=== PATIENT | female | born 1975 | race Caucasian/White ===

== ENCOUNTER 2017-03-13 12:56 | Emergency (ER) | payer OTHER ==
[2017-03-13] MEDS ORDERED: NORMAL SALINE 1000 ML 1,000 ML IV PRN (13:09)
--- NOTE | 2017-03-13 13:11 | ER Document Report ---
ED Medical Screen (RME) - General Chief Complaint: Allergic Reaction Stated Complaint: POSSIBLE ALLERGIC REACTION Time Seen by Provider: 03/13/17 13:05 Mode of Arrival: Ambulatory Information source: Patient, Relative TRAVEL OUTSIDE OF THE U[place] IN LAST 30 DAYS: No - HPI Patient complains to provider of: Nausea, vomiting, hallucinating Notes: 03/13/17 13:10 Patient is a 42-year-old female presenting to the emergency room today complaining of nausea and vomiting that occurred a few days ago, although she continues to have nausea today, a cough productive of whitish colored phlegm, and hallucinating, having episodes of seeing people that are that she knows, patient is concerned that this may be a reaction to medication, she was unable to take her medication for a few days due to excessive vomiting, and restarted all of them recently, 1 of them being Ambien CR which she has not taken the CR formulation in the past - Related Data Allergies/Adverse Reactions: gabapentin [Gabapentin] Allergy (Verified 07/19/15 11:36) Sulfa (Sulfonamide Antibiotics) Allergy (Verified 07/19/15 11:36) rash codeine [Codeine] Adverse Reaction (Verified 07/19/15 11:36) Past Medical History - Past Medical History Cardiac Medical History: Denies: Hx Coronary Artery Disease, Hx Heart Attack, Hx Hypertension Pulmonary Medical History: Denies: Hx Asthma, Hx Bronchitis, Hx COPD, Hx Pneumonia Neurological Medical History: Reports: Hx Seizures - allergic reaction to Gabapentin. Denies: Hx Cerebrovascular Accident Endocrine Medical History: Reports: Hx Hypothyroidism Renal/ Medical History: Reports: Hx Kidney Stones. Denies: Hx Peritoneal Dialysis Musculoskeltal Medical History: Denies Hx Arthritis Past Surgical History: Reports: Hx Appendectomy, Hx Gynecologic Surgery - endometrial ablation in '03 - Immunizations Hx Diphtheria, Pertussis, Tetanus Vaccination: Yes Physical Exam - Vital signs Vitals: Temp Pulse Resp BP Pulse Ox 99.6 F 117 H 20 124/74 98 03/13/17 13:01 03/13/17 13:03/13/17 13:03/13/17 13:01 03/13/17 13:01 Course - Vital Signs Vital signs: Temp Pulse Resp BP Pulse Ox 99.6 F 117 H 20 124/74 98 03/13/17 13:01 03/13/17 13:01 03/13/17 13:01 03/13/17 13:01 03/13/17 13:01
[2017-03-13 13:47] LABS: ABSOLUTE EOSINOPHILS # (AUTO) 0.1 10^3/uL (0.0-0.6); ABSOLUTE LYMPHOCYTES (AUTO) 0.9 10^3/uL (0.5-4.7); ABSOLUTE MONOCYTES (AUTO) 0.6 10^3/uL (0.1-1.4); ABSOLUTE NEUT (AUTO) 11.2 10^3/uL (1.7-8.2); BASOPHILS % (AUTO) 0.3 % (0-2); EOSINOPHILS % (AUTO) 0.4 % (0-6); HEMATOCRIT 35.5 % (36.0-47.0); HEMOGLOBIN 12.4 g/dL (12.0-15.5); HGB HCT DIFFERENCE 1.7; MEAN CORPUSCULAR HEMOGLOBIN 34.7 pg (27.0-33.4); MEAN CORPUSCULAR VOLUME 99 fl (80-97); MONOCYTES % (AUTO) 4.6 % (3-13); RED BLOOD COUNT 3.58 10^6/uL (3.72-5.28); RED CELL DISTRIBUTION WIDTH 14.2 % (11.5-14.0); SEGMENTED NEUTROPHILS % (AUTO) 87.7 % (42-78); WHITE BLOOD COUNT 12.8 10^3/uL (4.0-10.5)
[2017-03-13 13:53] LABS: APPEARANCE,URINE CLEAR; BILIRUBIN,URINE NEGATIVE (NEGATIVE); GLUCOSE, URINE NEGATIVE (NEGATIVE); KETONES,URINE NEGATIVE (NEGATIVE); LEUKOCYTE ESTERASE,URINE NEGATIVE (NEGATIVE); NITRITE,URINE NEGATIVE (NEGATIVE); PROTEIN,URINE NEGATIVE (NEGATIVE); URINE SPECIFIC GRAVITY 1.005; UROBILINOGEN,URINE NEGATIVE mg/dL (<2.0)
[2017-03-13 14:02] LABS: ALANINE AMINOTRANSFERASE 446 U/L (9-52); ALBUMIN 4.1 g/dL (3.5-5.0); ALCOHOL < 10 mg/dL (NONE DETECTED); ALKALINE PHOSPHATASE 183 U/L (38-126); ANION GAP 12 (5-19); ASPARTATE AMINO TRANSFERASE 89 U/L (14-36); BILIRUBIN,DIRECT 0.6 mg/dL (0.0-0.4); BILIRUBIN,TOTAL 0.8 mg/dL (0.2-1.3); BLOOD UREA NITROGEN 3 mg/dL (7-20); CALCIUM 9.5 mg/dL (8.4-10.2); CARBON DIOXIDE 22 mmol/L (22-30); CHLORIDE 106 mmol/L (98-107); CREATININE RESULT 0.55 mg/dL (0.52-1.25); GLUCOSE 127 mg/dL (75-110); SODIUM 139.8 mmol/L (137-145); TOTAL PROTEIN 6.8 g/dL (6.3-8.2)
[2017-03-13 14:07] LABS: URINE BARBITURATES SCREEN NEGATIVE; URINE METHADONE SCREEN NEGATIVE; URINE OPIATES LOW NEGATIVE; URINE PHENCYCLIDINE SCREEN NEGATIVE
[2017-03-13 14:07] LABS: POTASSIUM 3.1 mmol/L (3.6-5.0)
--- NOTE | 2017-03-13 14:24 | ER Document Report ---
ED General - General Chief Complaint: Allergic Reaction Stated Complaint: POSSIBLE ALLERGIC REACTION Time Seen by Provider: 03/13/17 13:05 Mode of Arrival: Ambulatory Information source: Patient Notes: Patient presents to the emergency department with complaints of hallucinations. Denies suicidal or homicidal ideations. Patient reports that on Wednesday of this past week she had a stomach bug, with vomiting diarrhea. Patient reports no vomiting diarrhea since and she has been eating and drinking as normal. Patient and her boyfriend reported that since she has been hallucinating, restless in her sleep, shaky and dizzy. She also reports having ringing in her ears. Patient reports when she was sick Wednesday through Wednesday she did not take any of her usual meds. She returned to them on to include Paxil Xanax and Ambien CR. Her boyfriend reports that she started screaming at him this morning and was hallucinating. Reports she was seeing her grandmother. Denies auditory hallucinations. Reports she is under the care of Dr. Suero [facility]. Patient also has a history of Graves' disease depression anxiety. She reports her last thyroid studies were normal. Patient is shaky and tearful. TRAVEL OUTSIDE OF THE [place] IN LAST 30 DAYS: No - HPI Onset: Other - since Onset/Duration: Persistent Quality of pain: No pain Associated symptoms: None Exacerbated by: Denies Relieved by: Denies Similar symptoms previously: No Recently seen / treated by doctor: No - Related Data Allergies/Adverse Reactions: gabapentin [Gabapentin] Allergy (Verified 07/19/15 11:36) Sulfa (Sulfonamide Antibiotics) Allergy (Verified 07/19/15 11:36) rash codeine [Codeine] Adverse Reaction (Verified 07/19/15 11:36) Past Medical History - General Information source: Patient, Relative Last Menstrual Period: 02/15/17 - Social History Smoking Status: Current Every Day Smoker Cigarette use (# per day): Yes Chew tobacco use (# tins/day): No Frequency of alcohol use: None Drug Abuse: None Lives with: Friend - boyfriend Family History: Reviewed & Not Pertinent Patient has suicidal ideation: No Patient has homicidal ideation: No - Past Medical History Cardiac Medical History: Denies: Hx Coronary Artery Disease, Hx Heart Attack, Hx Hypertension Pulmonary Medical History: Denies: Hx Asthma, Hx Bronchitis, Hx COPD, Hx Pneumonia Neurological Medical History: Reports: Hx Seizures - allergic reaction to Gabapentin. Denies: Hx Cerebrovascular Accident Endocrine Medical History: Reports: Hx Graves' Disease, Hx Hypothyroidism Renal/ Medical History: Reports: Hx Kidney Stones. Denies: Hx Peritoneal Dialysis Musculoskeltal Medical History: Denies Hx Arthritis Psychiatric Medical History: Reports: Hx Anxiety, Hx Depression Past Surgical History: Reports: Hx Appendectomy, Hx Cholecystectomy, Hx Gynecologic Surgery - endometrial ablation in '03 - Immunizations Hx Diphtheria, Pertussis, Tetanus Vaccination: Yes Review of Systems - Review of Systems Notes: Review HPI for review of systems., All other systems negative Physical Exam - Vital signs Vitals: Temp Pulse Resp BP Pulse Ox 99.6 F 117 H 20 124/74 98 03/13/17 13:01 03/13/17 13:01 03/13/17 13:01 03/13/17 13:01 03/13/17 13:01 - Notes Notes: PHYSICAL EXAMINATION: GENERAL: nontoxic looking HEAD: Atraumatic, normocephalic. EYES: Pupils equal round and reactive to light, extraocular movements intact, sclera anicteric, conjunctiva are normal. ENT: nares patent, oropharynx clear without exudates. Moist mucous membranes. NECK: Normal range of motion, supple without lymphadenopathy LUNGS: CTAB and equal. No wheezes rales or rhonchi. HEART: Regular rate and rhythm without murmurs ABDOMEN: Soft, no tenderness. No guarding, no rebound EXTREMITIES: Normal range of motion, no pitting edema. No cyanosis. NEUROLOGICAL: Cranial nerves grossly intact. Normal sensory/motor exams. PSYCH: Normal mood, normal affect. SKIN: Warm, Dry, normal turgor, no rashes or lesions noted Course - Re-evaluation Re-evalutation: 03/13/17 16:22 Amrit from mental health and to see patient. She reports patient is safe to go home. Patient is no longer experiencing hallucinations. We believe the hallucinations stem from her medications after being sick and restarting them at the same time. Patient's boyfriend is at her side and reports he is staying home for the next couple days and she is safe at home. - Vital Signs Vital signs: Temp Pulse Resp BP Pulse Ox 99.6 F 117 H 20 124/74 98 03/13/17 13:01 03/13/17 13:01 03/13/17 13:01 03/13/17 13:01 03/13/17 13:01 - Laboratory Result Diagrams: 03/13/17 13:32 03/13/17 13:32 Laboratory results interpreted by me: 03/13/17 03/13/17 03/13/17 13:21 13:32 13:32 WBC 12.8 H RBC 3.58 L Hct 35.5 L MCV 99 H MCH 34.7 H RDW 14.2 H Seg Neutrophils % 87.7 H Lymphocytes % 7.0 L Absolute Neutrophils 11.2 H Potassium 3.1 L BUN 3 L Glucose 127 H Direct Bilirubin 0.6 H AST 89 H ALT 446 H Alkaline Phosphatase 183 H Urine Blood SMALL H Salicylates < 1.0 L Acetaminophen < 10 L Discharge - Discharge Clinical Impression: Hallucinations Condition: Stable Disposition: HOME, SELF-CARE Instructions: Hallucinations ([facility]) Additional Instructions: *You have been evaluated for hallucinations *Rest *Follow up with your primary care provider within 3 days for recheck *Take your medication as prescribed *Return to ED for worsening condition, changes, needs Monitor your blood pressure. Your blood pressure was elevated today. This may be because you were anxious, in pain or because you need medication. It is important to follow up with your primary care provider for full evaluation. Forms: Elevated Blood Pressure
[2017-03-13 15:23] LABS: THYROID STIMULATING HORMONE 0.56 uIU/mL (0.47-4.68)
--- NOTE | 2017-03-13 16:31 | EKG REPORT ---
SEVERITY:- ABNORMAL ECG - SINUS RHYTHM INCOMPLETE RIGHT BUNDLE BRANCH BLOCK NONSPECIFIC T CHANGES : Confirmed by: Ramona Matos 13-Mar-2017 16:29:29
--- NOTE | 2017-03-13 16:31 | EKG REPORT ---
SEVERITY:- ABNORMAL ECG - SINUS TACHYCARDIA INCOMPLETE RIGHT BUNDLE BRANCH BLOCK NONSPECIFIC T CHANGES : Confirmed by: Ramona Matos 13-Mar-2017 16:29:55
[2017-03-13 16:59] VITALS: BP 118/75
--- NOTE | 2017-03-13 17:12 | ER Document Report ---
ED Psych Disorder / Suicide - General Chief Complaint: Allergic Reaction Stated Complaint: POSSIBLE ALLERGIC REACTION Time Seen by Provider: 03/13/17 13:05 Mode of Arrival: Ambulatory TRAVEL OUTSIDE OF THE [place] IN LAST 30 DAYS: No - HPI Notes: Patient presents to the emergency department with complaints of hallucinations. Denies suicidal or homicidal ideations. Patient reports that on Wednesday of this past week she had a stomach bug, with vomiting diarrhea. Patient reports no vomiting diarrhea since and she has been eating and drinking as normal. Patient and her boyfriend reported that since she has been hallucinating, restless in her sleep, shaky and dizzy. She also reports having ringing in her ears. Patient reports when she was sick Wednesday through Wednesday she did not take any of her usual meds. She returned to them on to include Paxil Xanax and Ambien CR. Her boyfriend reports that she started screaming at him this morning and was hallucinating. Reports she was seeing her grandmother. Denies auditory hallucinations. Reports she is under the care of Dr. Suero [facility]. Patient also has a history of Graves' disease depression anxiety. She reports her last thyroid studies were normal. Patient is shaky and tearful. Patient disclosed that she just had a little bit of "me time." She states that she is embarrassed but she just lost it for minute. She continued disclosed that her father in April of last year. She reports family in [place] contacted her and told her there was nothing salvageable in any of the family homes, so she has lost everything to remind her of her father. Patient states that she was recently sick and stopped taking all of her medications to include Xanax Paxil and Ambien. She restarted them all however this resulted in hallucinations. Patient states she does not remember much over the weekend or what she saw or did not see so requested her to explain to clinician. Patient's , Chance, states that the patient was walking around the home almost like a zombie and was seeing family members that have . He continued disclosed that she did not seem to hear anything however she was seen them. He continued to state that she was coming convinced that he was hiding a woman in the home and was very agitated walking around the home looking for this lady. He disclosed the patient is very different normally she always is in control and takes care of everything. He states that just from the time of first coming to the emergency department and now she is already much better and returning back to her normal self. Patient is alert and orientated to person, place, time and circumstance. Mood is dysphoric with tearful affect at times. Patient denies suicidal and homicidal ideations. Patient endorsed visual hallucinations; however, this can be contributed to the patient's abrupt stop in medications and starting again ( i.e Ambien CR). Delusions were absent and behaviors congruent with intact reality based presentation i.e. organized, linear, rational thinking. Conversational speech was within normal rate tone and prosody. Eye contact was well-maintained. Intellectual abilities appear to be within the average range. Attention and concentration were good. Insight, judgment, impulse control are good. 311 (F32.9) unspecified depressive disorder 300.00 (34.9) Unspecified anxiety disorder Impression/Plan: Patient is considered psychiatrically clear for discharge. Patient does not meet IVC criteria per [place] GS 122C. patient denies suicidal and homicidal ideation. Patient disclosed experiencing visual hallucinations; however, this can be contributed to the patient's abrupt stop in medications and starting again (i.e Ambien CR). This is supported by patient's behaviors being congruent with intact reality based presentation i.e. organized, linear, rational thinking in addition to a good eye contact. Patient's states he is willing to be part of patient's discharge plan and both patient and feel safe the patient can come home. Discharge plan include ensuring patient does not have any access to medications and weapons and to follow-up with all outpatient mental health provider recommendations. Dr. Ontiveros was consulted and the care management of this patient; attending physician is in agreement with recommendations and disposition. - Related Data Allergies/Adverse Reactions: gabapentin [Gabapentin] Allergy (Verified 07/19/15 11:36) Sulfa (Sulfonamide Antibiotics) Allergy (Verified 07/19/15 11:36) rash codeine [Codeine] Adverse Reaction (Verified 07/19/15 11:36) Past Medical History - General Information source: Patient, Relative Last Menstrual Period: 02/15/17 - Social History Smoking Status: Current Every Day Smoker Cigarette use (# per day): Yes Chew tobacco use (# tins/day): No Frequency of alcohol use: None Drug Abuse: None Lives with: Friend - boyfriend Family History: Reviewed & Not Pertinent Patient has suicidal ideation: No Patient has homicidal ideation: No - Past Medical History Cardiac Medical History: Denies: Hx Coronary Artery Disease, Hx Heart Attack, Hx Hypertension Pulmonary Medical History: Denies: Hx Asthma, Hx Bronchitis, Hx COPD, Hx Pneumonia Neurological Medical History: Reports: Hx Seizures - allergic reaction to Gabapentin. Denies: Hx Cerebrovascular Accident Endocrine Medical History: Reports: Hx Graves' Disease, Hx Hypothyroidism Renal/ Medical History: Reports: Hx Kidney Stones. Denies: Hx Peritoneal Dialysis Musculoskeltal Medical History: Denies Hx Arthritis Psychiatric Medical History: Reports: Hx Anxiety, Hx Depression Past Surgical History: Reports: Hx Appendectomy, Hx Cholecystectomy, Hx Gynecologic Surgery - endometrial ablation in '03 - Immunizations Hx Diphtheria, Pertussis, Tetanus Vaccination: Yes Physical Exam - Vital signs Vitals: Temp Pulse Resp BP Pulse Ox 99.6 F 117 H 20 124/74 98 03/13/17 13:01 03/13/17 13:01 03/13/17 13:01 03/13/17 13:01 03/13/17 13:01 Course - Vital Signs Vital signs: Temp Pulse Resp BP Pulse Ox 99.6 F 117 H 20 124/74 98 03/13/17 13:01 03/13/17 13:01 03/13/17 13:01 03/13/17 13:01 03/13/17 13:01 - Laboratory Result Diagrams: 03/13/17 13:32 03/13/17 13:32 Laboratory results interpreted by me: 03/13/17 03/13/17 03/13/17 13:21 13:32 13:32 WBC 12.8 H RBC 3.58 L Hct 35.5 L MCV 99 H MCH 34.7 H RDW 14.2 H Seg Neutrophils % 87.7 H Lymphocytes % 7.0 L Absolute Neutrophils 11.2 H Potassium 3.1 L BUN 3 L Glucose 127 H Direct Bilirubin 0.6 H AST 89 H ALT 446 H Alkaline Phosphatase 183 H Urine Blood SMALL H Salicylates < 1.0 L Acetaminophen < 10 L Discharge - Discharge Clinical Impression: Hallucinations Condition: Stable Disposition: HOME, SELF-CARE Instructions: Hallucinations ([facility]) Additional Instructions: DEPRESSION: Your evaluation reveals that you have mental depression. While symptoms may be vague, they often include disturbance of sleep, fatigue, loss of appetite , and general loss of interest in life. While depression may be a side effect of drugs, or a reaction to a major change in your life, many cases have no known cause. If depression is acute, and related to a major loss in your life, you can expect it to clear completely with time. If you have been depressed a long time , are prone to repeated bouts of depression or low mood, or have been thinking of suicide, get help. Depression can be treated with anti-depressant medication and counselling. Long-term depression will often take a few weeks to clear, even with appropriate medication. Follow-up care is important. *You have been evaluated for hallucinations *Rest *Follow up with your primary care provider within 3 days for recheck *Take your medication as prescribed *Return to ED for worsening condition, changes, needs Monitor your blood pressure. Your blood pressure was elevated today. This may be because you were anxious, in pain or because you need medication. It is important to follow up with your primary care provider for full evaluation. FOLLOW-UP CARE: If you have been referred to a physician for follow-up care, call the physician s office for an appointment as you were instructed or within the next two days. ~ If you experience worsening or a significant change in your symptoms, notify the physician immediately or return to the Emergency Department at any time for re-evaluation. Forms: Elevated Blood Pressure
== END 2017-03-13 16:42 | disposition home or self-care (01) ==
LOC: ER 12:56
DX: R44.3 Hallucinations, unspecified (principal); T50.995A Adverse effect of other drugs, medicaments and biological substances, initial encounter; F32.9 Major depressive disorder, single episode, unspecified; F17.210 Nicotine dependence, cigarettes, uncomplicated
CPT/HCPCS: 93005; 99284; 96360; 36415; 84439; 80307 ×4; 83690; 84443; 84703; 85025; 80053; 81001; 93010; J7030

== ENCOUNTER 2017-03-14 00:18 | Emergency (ER) | payer OTHER ==
[2017-03-14] MEDS ORDERED: HALOPERIDOL 5 MG TABLET PO ONE (01:58)
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
--- NOTE | 2017-03-14 02:58 | RADIOLOGY REPORT (SQ) ---
EXAM DESCRIPTION: U/S ABDOMEN LIMITED W/O DOP COMPLETED DATE/TIME: 03/14/2017 2:43 am REASON FOR STUDY: elevated lfts COMPARISON: Right upper quadrant ultrasound 05/26/2015. TECHNIQUE: Grayscale images acquired of the right upper quadrant and recorded on PACS. Additional se lected color Doppler and spectral images recorded. LIMITATIONS: Acoustical interference from fat or from air in the bowel. FINDINGS: PANCREAS: Partially obscured by overlying bowel gas. The visualized pancreas in the midli ne is unremarkable. LIVER: The liver measures 13.1 cm Echotexture is coarse with increased echogenicity consistent with f atty infiltration. LIVER VASCULATURE: Normal directional flow of the main portal vein. GALLBLADDER: Surgically absent. ULTRASOUND-DETECTED YOUNG'S SIGN: Not applicable. INTRAHEPATIC DUCTS AND COMMON DUCT: CBD and intrahepatic ducts normal caliber. INFERIOR VENA CAVA: Patent. AORTA: No aneurysm in the visualized segments. RIGHT KIDNEY: Measures 11.5 cm. Normal echogenicity. No hydronephrosis. No calcifications. PERITONEAL CAVITY AND RIGHT PLEURAL SPACE: No ascites or effusion. IMPRESSION: Status post cholecystectomy. No biliary ductal dilation. Fatty infiltration of the liver. TECHNICAL DOCUMENTATION: JOB ID: [id number] [id number] All Rights Reserved
[2017-03-14 03:02] LABS: HEMATOCRIT 32.2 % (36.0-47.0); HEMOGLOBIN 11.4 g/dL (12.0-15.5); MEAN CORPUSCULAR HEMOGLOBIN 35.4 pg (27.0-33.4); MEAN CORPUSCULAR HGB CONC 35.5 g/dL (32.0-36.0); MEAN CORPUSCULAR VOLUME 100 fl (80-97); RED BLOOD COUNT 3.22 10^6/uL (3.72-5.28); RED CELL DISTRIBUTION WIDTH 13.9 % (11.5-14.0); WHITE BLOOD COUNT 7.3 10^3/uL (4.0-10.5)
[2017-03-14 03:21] LABS: ALANINE AMINOTRANSFERASE 313 U/L (9-52); ALBUMIN 3.2 g/dL (3.5-5.0); ALKALINE PHOSPHATASE 163 U/L (38-126); ANION GAP 6 (5-19); ASPARTATE AMINO TRANSFERASE 57 U/L (14-36); BILIRUBIN,DIRECT 0.5 mg/dL (0.0-0.4); BILIRUBIN,TOTAL 0.6 mg/dL (0.2-1.3); BLOOD UREA NITROGEN 6 mg/dL (7-20); CALCIUM 8.7 mg/dL (8.4-10.2); CARBON DIOXIDE 24 mmol/L (22-30); CHLORIDE 109 mmol/L (98-107); CREATININE RESULT 0.55 mg/dL (0.52-1.25); GLUCOSE 96 mg/dL (75-110); POTASSIUM 3.4 mmol/L (3.6-5.0); SODIUM 139.4 mmol/L (137-145); TOTAL PROTEIN 5.8 g/dL (6.3-8.2)
[2017-03-14 03:59] VITALS: BP 114/72
== END 2017-03-14 03:59 | disposition home or self-care (01) ==
LOC: ER 00:18
DX: K76.0 Fatty (change of) liver, not elsewhere classified (principal); R79.89 Other specified abnormal findings of blood chemistry; R44.3 Hallucinations, unspecified; F32.9 Major depressive disorder, single episode, unspecified; Z72.820 Sleep deprivation; F41.9 Anxiety disorder, unspecified; Z90.49 Acquired absence of other specified parts of digestive tract; Z88.2 Allergy status to sulfonamides; Z88.6 Allergy status to analgesic agent; Z87.442 Personal history of urinary calculi
CPT/HCPCS: 36415; 76705; 80053; 82140; 85027; 99285

== ENCOUNTER 2018-02-27 23:41 | Emergency (ER) | payer OTHER ==
--- NOTE | 2018-02-28 03:29 | ER Document Report ---
HPI - HPI Patient complains to provider of: fall, left arm pain, left foot pain, neck pain Pain Level: 4 Context: Patient is a 43-year-old female that comes to the emergency department for chief complaint of fall injury, this happened 2 days ago, she states the first time she slipped and rolled her left foot causing bruising and pain, the second time she slipped and fell causing abrasion to her left forearm, pain to her left wrist, and she fell and hit her head/neck. She denies falling since, alcohol, and imbalance. Denies syncope, she is not on blood thinner, denies vomiting, denies headache. She states she just wants to be checked out. - REPRODUCTIVE Reproductive: DENIES: : Past Medical History - General Information source: Patient - Social History Smoking Status: Never Smoker Frequency of alcohol use: None Drug Abuse: None Lives with: Family Family History: Reviewed & Not Pertinent - Past Medical History Cardiac Medical History: Denies: Hx Coronary Artery Disease, Hx Heart Attack, Hx Hypertension Pulmonary Medical History: Denies: Hx Asthma, Hx Bronchitis, Hx COPD, Hx Pneumonia Neurological Medical History: Reports: Hx Seizures - allergic reaction to Gabapentin. Denies: Hx Cerebrovascular Accident Endocrine Medical History: Reports: Hx Graves' Disease, Hx Hypothyroidism Renal/ Medical History: Reports: Hx Kidney Stones. Denies: Hx Peritoneal Dialysis Musculoskeletal Medical History: Denies Hx Arthritis Psychiatric Medical History: Reports: Hx Anxiety, Hx Depression - anxiety Past Surgical History: Reports: Hx Appendectomy, Hx Cholecystectomy, Hx Gynecologic Surgery - endometrial ablation in '03 - Immunizations Hx Diphtheria, Pertussis, Tetanus Vaccination: Yes Vertical Provider Document - CONSTITUTIONAL General Appearance: WD/WN, No Apparent Distress - INFECTION CONTROL TRAVEL OUTSIDE OF THE [place] IN LAST 30 DAYS: No - HEENT HEENT: Atraumatic, Normal ENT Exam, Normocephalic - NECK Neck: Normal Inspection - RESPIRATORY Respiratory: Breath Sounds Normal, No Respiratory Distress - CARDIOVASCULAR Cardiovascular: Regular Rate, Regular Rhythm - GI/ABDOMEN Gastrointestinal: Abdomen Soft, Abdomen Non-Tender - BACK Back: negative: Normal Inspection - Mild tenderness to the right paracervical musculature and questionably minimally at the midline, no overt midline tenderness, no saddle anesthesia, no signs of trauma. Normal upper and lower extremity range of motion, normal strength, normal distal neurovascular exam. - MUSCULOSKELETAL/EXTREMETIES Musculoskeletal/Extremeties: MAEW, FROM, Tender - Tender over the left dorsum of the foot with questionable mild bruising and soft tissue swelling, normal capillary refill and sensation, normal dorsalis pedis, normal ankle exam. Mild generalized tenderness over the left wrist, no swelling, full range of motion, no snuffbox tenderness specifically. - NEURO Level of Consciousness: Awake, Alert, Appropriate - DERM Integumentary: Warm, Dry, No Rash Course - Re-evaluation Re-evalutation: Well-appearing patient, minimal soft tissue swelling over the left foot dorsally , no open wounds, tetanus up-to-date, mild generalized wrist tenderness without swelling, no snuffbox tenderness, no midline neck tenderness, paracervical tenderness on the right side only with no loss of range of motion. No neurological deficits. Unremarkable x-rays. Discussed results with patient, discussed treatment, follow-up, and return precautions. Patient declines immobilization and crutches. Patient states satisfaction and agreement. - Vital Signs Vital signs: Temp Pulse Resp BP Pulse Ox 98.1 F 72 18 138/73 H 99 02/28/18 00:09 02/28/18 00:09 02/28/18 00:09 02/28/18 00:02/28/18 00:09 Discharge - Discharge Clinical Impression: Neck pain, Left foot pain, Left wrist pain Fall Qualifiers: Encounter type: initial encounter Qualified Code(s): W19.XXXA - Unspecified fall, initial encounter Condition: Stable Disposition: HOME, SELF-CARE Additional Instructions: Images do not show dislocation or fracture. Examination is consistent with soft tissue injury. You also have strain of the paracervical and trapezius muscles in the neck and shoulder. Rest, apply heat to your neck and back, take muscle relaxers prescribed, take anti-inflammatory as prescribed, elevate and ice your foot. Symptoms should resolve with time especially with rest. If symptoms continue after 3-5 days follow-up with orthopedics for additional evaluation and management. Return for any concerning symptoms including severe swelling or pain. Prescriptions: Metaxalone [Skelaxin 800 mg Tablet] 800 mg PO ASDIR PRN #20 tablet PRN Reason: Methocarbamol [Robaxin 500 mg Tablet] 500 mg PO QID PRN #12 tablet PRN Reason: Naproxen [Naprosyn 375 Mg Tablet] 375 mg PO BID #20 tablet Referrals: TESSA DAVIS MD [ACTIVE STAFF] - Follow up as needed
[2018-02-28 06:50] VITALS: BP 135/75
--- NOTE | 2018-02-28 07:47 | RADIOLOGY REPORT (SQ) ---
EXAM DESCRIPTION: Cervical spine radiographs February 28, 2018 CLINICAL HISTORY: 43 years, Female, fall, pain COMPARISON: None. FINDINGS: There are 7 cervical type vertebral bodies in normal anatomic alignment. There is no evidence of acute fracture or dislocation. There are no significant degenerative changes. Limited evaluation of the calvarium, facial bones, and lung apices demonstrate no gross abnormalities. The prevertebral and paravertebral soft tissues are grossly normal. IMPRESSION: No acute fracture or dislocation of the cervical spine.
--- NOTE | 2018-02-28 07:47 | RADIOLOGY REPORT (SQ) ---
Left foot three view on 02/28/2018 at 3:55 AM CLINICAL INDICATION: Foot pain after fall COMPARISON: None FINDINGS: There are no fractures. Visualized joints are well aligned. No bony abnormality is noted. IMPRESSION: No acute bony abnormality.
--- NOTE | 2018-02-28 07:47 | RADIOLOGY REPORT (SQ) ---
EXAM DESCRIPTION: 3 views of the left wrist February 28, 2018 CLINICAL HISTORY: 43 years, Female, fall, pain COMPARISON: None. FINDINGS: There is no acute fracture or dislocation. The bony alignment is normal. There is no focal soft tissue swelling. The distal radius/ ulna, carpal, metacarpal, and phalangeal bones are normal in appearance.The visualized portions of the intercarpal, carpometacarpal, metacarpophalangeal, and interphalangeal joints are normal in appearance. IMPRESSION: No acute fracture or dislocation.
== END 2018-02-28 06:12 | disposition home or self-care (01) ==
LOC: ER 23:41
DX: M54.2 Cervicalgia (principal); M79.602 Pain in left arm; M79.672 Pain in left foot; W01.0XXA Fall on same level from slipping, tripping and stumbling without subsequent striking against object, initial encounter; Z87.442 Personal history of urinary calculi
CPT/HCPCS: 72050; 99283